=== PATIENT | female | born 1955 | race Asian ===

== ENCOUNTER → 2017-12-10 | Outpatient (CLI) | payer BC ==
--- NOTE | 2017-12-10 16:06 | RADIOLOGY REPORT (SQ) ---
EXAM DESCRIPTION: MRI RT UPPER JOINT WITHOUT COMPLETED DATE/TIME: 12/10/2017 3:32 pm REASON FOR STUDY: M25.511 PAIN IN RIGHT SHOULDER M25.511 PAIN IN RIGHT SHOULDER COMPARISON: None. TECHNIQUE: Right shoulder images acquired and stored on PACS. Multiplanar imaging to include fat sen sitive sequences such as T1, water sensitive sequences such as FST2/STIR, cartilage sensitive sequenc es such as FSPD/gradient-echo sequences. LIMITATIONS: None. FINDINGS: BONE MARROW AND CORTEX: No worrisome bone lesions or marrow replacement. No occult fractur es. JOINT OR BURSAL EFFUSION: No significant joint or bursal fluid. No suggestion of loose bodies. GLENO-HUMERAL ARTICULATION: Intact. ACROMION AND AC JOINT: Type 2. Moderate AC joint arthropathy. ROTATOR CUFF AND INTERVAL: Partial-thickness intrasubstance tear of the supraspinatus. No rotator interval tear. No rotator interval thickening to suggest adhesive capsulitis. LABRUM AND BICEPS LABRAL COMPLEX: Intact. No labral tear. Intra-articular long-head biceps tendon n ormal. Distal biceps in normal location in bicipital groove. REMAINDER OF LABRUM AND IGHL : No gross tear or paralabral cyst formation. Labral evaluation is less than optimal without joint distention. No thickening of IGHL to suggest adhesive capsulitis. PERIARTICULAR AND ADJACENT SOFT TISSUES: No masses or abnormal nodes. OTHER: No other significant finding. IMPRESSION: 1. Tendinopathy. Partial thickness interstitial tear of the supraspinatus. 2. AC joint arthropathy. TECHNICAL DOCUMENTATION: JOB ID: [id number] [employer]- All Rights Reserved
== END ==
LOC: RAD 13:59
PROVIDERS: ATTEND Physician Assistant
DX: M25.511 Pain in right shoulder (principal)

== ENCOUNTER 2018-02-05 05:44 | Day surgery (SDC) | payer BC ==
[2018-02-03 10:53] LABS: HEMATOCRIT 32.4 % (36.0-47.0); HEMOGLOBIN 10.3 g/dL (12.0-15.5); MEAN CORPUSCULAR HEMOGLOBIN 19.6 pg (27.0-33.4); MEAN CORPUSCULAR HGB CONC 31.6 g/dL (32.0-36.0); PLATELET COUNT 251 10^3/uL (150-450); RED BLOOD COUNT 5.24 10^6/uL (3.72-5.28); RED CELL DISTRIBUTION WIDTH 16.8 % (11.5-14.0); WHITE BLOOD COUNT 5.4 10^3/uL (4.0-10.5)
[2018-02-03 11:16] LABS: ALANINE AMINOTRANSFERASE 33 U/L (9-52); ALBUMIN 4.5 g/dL (3.5-5.0); ALKALINE PHOSPHATASE 67 U/L (38-126); AMYLASE 65 U/L (30-110); ANION GAP 10 (5-19); ASPARTATE AMINO TRANSFERASE 31 U/L (14-36); BILIRUBIN,DIRECT 0.5 mg/dL (0.0-0.4); BILIRUBIN,TOTAL 0.7 mg/dL (0.2-1.3); BLOOD UREA NITROGEN 20 mg/dL (7-20); CALCIUM 10.3 mg/dL (8.4-10.2); CARBON DIOXIDE 29 mmol/L (22-30); CHLORIDE 106 mmol/L (98-107); GLUCOSE 99 mg/dL (75-110); POTASSIUM 3.9 mmol/L (3.6-5.0); SODIUM 144.9 mmol/L (137-145); TOTAL PROTEIN 7.5 g/dL (6.3-8.2)
[2018-02-03 11:26] LABS: MEAN CORPUSCULAR VOLUME 62 fl (80-97)
--- NOTE | 2018-02-03 13:16 | EKG REPORT ---
SEVERITY:- NORMAL ECG - SINUS RHYTHM : Confirmed by: Jesu March MD 03-Feb-2018 13:16:03
[2018-02-04 13:05] LABS: PATH REVIEW PATHOLOGIST REVIEWED
[~2018-02-05 05:44] MED LIST: ACETAMINOPHEN 325 MG TABLET PO PRN; CEFAZOLIN 1 GM/D5W RTU 1 GM/50 ML RTUPB IV PRN; LACTATED RINGERS 1000 ML IV PRN; LIDOCAINE 0.5% INJ-PF (5 MG/ML) 50 ML SDV SUBCUT PRN
[2018-02-05] MEDS ORDERED: BUPIVACAINE HCL 0.25 % INJ/PF (2.5 MG/1 ML) 30 ML VIAL ONE (06:58)
[2018-02-05] MEDS ORDERED: FENTANYL CITRATE INJ/PF 250 MCG/5 ML AMPULE ONE (07:12)
[2018-02-05] MEDS ORDERED: HYDROMORPHONE HCL INJ/PF 2 MG/ML AMPULE ONE (07:13)
[2018-02-05] MEDS ORDERED: MIDAZOLAM 2 MG/2 ML INJ ONE (07:13)
[2018-02-05] MEDS ORDERED: EPHEDRINE SULFATE INJ 50 MG/1 ML AMPULE ONE (07:13)
[2018-02-05] MEDS ORDERED: PROPOFOL INJ 200 MG/20 ML VIAL IV ONE (07:14)
[2018-02-05] MEDS ORDERED: ACETAMINOPHEN 100 ML IV ONE (07:14)
[2018-02-05] MEDS ORDERED: DIPHENHYDRAMINE HCL 50 MG/ML VIAL IV PRN (07:58)
[2018-02-05] MEDS ORDERED: MEPERIDINE HCL/PF INJ 25 MG/1 ML DISP.SYRIN IV PRN (07:58)
[2018-02-05] MEDS ORDERED: FENTANYL CITRATE INJ/PF 100 MCG/2 ML AMPUL IV PRN ×3 (07:58)
[2018-02-05] MEDS ORDERED: PROMETHAZINE HCL INJ 25 MG/1 ML VIAL IV PRN ×2 (07:58)
[2018-02-05] MEDS ORDERED: OXYCODONE-ACETAMINOPHEN 5-325 MG TABLET PO PRN ×3 (07:58→08:13)
--- NOTE | 2018-02-05 08:13 | Operative Report ---
Operative Report DATE OF SURGERY: 02/05/18 PREOPERATIVE DIAGNOSIS: Symptomatic cholelithiasis with cholecystitis POSTOPERATIVE DIAGNOSIS: Same OPERATION: Laparoscopic cholecystectomy SURGEON: NORA NOEL BUTT WELDER: CELSO TINSLEY ANESTHESIA: GA TISSUE REMOVED OR ALTERED: Gallbladder with contents COMPLICATIONS: None ESTIMATED BLOOD LOSS: Scant INTRAOPERATIVE FINDINGS: See below PROCEDURE: After obtaining informed consent, the patient was taken to the operating room. General Anesthesia was induced; the arms were extended, and the abdomen was exposed, and prepped and draped in a sterile fashion. Instrumentation was set up for laparoscopic cholecystectomy. Surgical plan and surgical timeout were conducted. A vertical incision was made above the umbilicus, and a verres needle was inserted uneventfully into the peritoneal cavity. Pneumoperitoneum was established. The verres needle was removed and a 5 mm trocar was inserted and a 5 mm flexible laparoscope was inserted. Visualization of the peritoneal cavity confirmed safe uneventful entry. Under direct visualization 3 additional 5 mm ports were established, one in the subxiphoid position and second in the subcostal position. Visualization of the hepatobiliary anatomy revealed no anatomic variations. A grasper was placed on the fundus of the gallbladder and the gallbladder is elevated over the right surface of the liver; a second grasper was used to grasp the infundibulum of the gallbladder. The neck of the gallbladder and junction with the cystic duct was dissected out. The Cystic artery was in its usual location medial and cephalad to the cystic duct. The cystic artery was surrounded with a right angle clamp, clipped twice proximally and divided with laparoscopic scissors. We now opened the triangle of Calot by dividing the peritoneal reflection on both the medial and lateral sides of the cystic duct infundibular junction. At this point we decided preoperatively to an intraoperative cholangiogram based on the patient's graphic findings of a 1 mm crystals in the common bile duct; there is no evidence of common bile duct dilation, and liver function studies were within normal limits. Ever due to the unavailability of operative imaging, the procedure was aborted. The critical view was obtained photos were taken. We now milked the cystic duct of any possible stones, clipped the cystic duct approximately 2 times once distally and divided with scissors. The gallbladder was now removed from the undersurface of the liver using hook cautery dissection. Graspers were repositioned and the gallbladder was removed uneventfully from the abdominal cavity through the super umbilical port site incision. The specimen was examined, then passed off to pathology for permanent analysis. We returned to the peritoneal cavity check for bleeding, and evidence of bile leak, and there was none. We Confirmed satisfactory placement of clips on cystic duct and cystic artery were secured . At this point we felt the operation was complete. The subcutaneous tissue was then anesthetized with quarter percent Marcaine Sponge and needle counts are correct. All ports removed under direct visualization pneumoperitoneum evacuated, and 5 mm port wounds closed with 3-0 Vicryl suture, benzoin and Steri-Strips. The patient was extubated, and taken to the recovery room in stable condition. The physician graduate assistant, Ms. Marcial, provided assistance during this case by: Assisting and port insertion, retracting tissue, instillation of local anesthesia and closure of skin incisions.
[2018-02-05] MEDS ORDERED: ONDANSETRON HCL INJ/PF 4 MG/2 ML SDV IV PRN (08:14)
--- NOTE | 2018-02-05 08:14 | Discharge Summary ---
Discharge Summary (SDC) - Discharge Final Diagnosis: symptomatic cholecystitis with cholelithiasis Date of Surgery: 02/05/18 Discharge Date: 02/05/18 Condition: Stable Treatment or Instructions: [facility] [address] [place] [id number] Discharge Instructions: Laparoscopic Surgery 1. General Information: a. DO NOT DRIVE a car or operate dangerous machinery for 3-4 days or while taking narcotic pain pills. b. DO NOT consume alcohol, tranquilizers, sleeping medications or any non- prescribed medications for 24 hours unless approved by your doctor or as long as taking narcotic prescription medications. c. DO NOT make important decisions or sign any important papers for the first 24 hours after surgery. d. When discharged home the same day of surgery have a responsible person with you for the first night. 2. Activity Restrictions: 2 weeks a. NO heavy lifting, straining abdominal muscles, bending over a lot, yard work, house work, or sports for [address] NOT drive for 3-4 days c. It is fine to go for walks, up and down steps, ride in a car. d. Elevate your head when sleeping/resting. 3. Treatment: a. You may shower 24 hours after surgery, no baths or swimming for 2 weeks. Remove band-aids or dressings before shower but leave paper strips (steri-strips ) on the skin to fall off on their own. If still on at postoperative visit they will be removed then. b. Drainage of fluid or blood is not unusual from an incision. If occurs, you can clean with peroxide and cotton ball daily and cover with dry gauze until the wound seals. c. If a lot of bleeding occurs, you can hold pressure with a gauze or cloth over the site for 10 minutes and it will usually stop. If bleeding continues you will need to call for possible evaluation in office or emergency room. 4. Medications: a. _Toradol__ may be taken for pain as needed, one tablet every 6 hours. b. You should resume all normal medications unless a change is specified by your doctors. 5. Diet: Begin with clear liquids and may progress to your normal diet if not nauseated. No high fat, high protein foods the day of surgery. 6. The following may occur after laparoscopic surgery: a. Shoulder or upper back ache from retained gas that should resolve in 1-2 days b. Soreness and bruising at incision sites will resolve with time. c. Scrotal swelling (labia in women) and bruising is often seen after hernia surgery. d. Sore throat e. Fatigue may last days to weeks. f. Difficulty urinating may occur and may need to come into emergency room for urinary catheter placement. 7. Notify Physician If: a. Worsening or pain not improved with pain medication b. Persistent nausea and vomiting c. Fever above 101 d. Persistent bleeding or swelling at operative site e. Unable to urinate and uncomfortable bladder 6-8 hours after surgery 8..Follow Up Care: a. Schedule a follow up appointment with your doctor for 2 weeks. In the event of any postoperative problems or questions or you may call the office during business hours or the On-Call physician evenings and weekends at [facility]. [facility] I understand the instructions for my postoperative care as described above and a copy has been given to me. Patient/Significant Other Witness Date Prescriptions: Ketorolac Tromethamine [Toradol 10 mg Tablet] 10 mg PO Q6HP PRN #20 tablet PRN Reason: Referrals: ANAYA HUGO MD [Primary Care Provider] - Discharge Diet: Other (Comments) - avoid fatty/greasy foods Discharge Activity: Activity As Tolerated, Walk Frequently Report the Following to Your Physician Immediately: Nausea, Vomiting, Fever over 101 Degrees
[2018-02-05 10:52] VITALS: BP 141/86
[2018-02-05] MEDS ORDERED: SUCCINYLCHOLINE CHLORIDE INJ 200 MG/10 ML VIAL ONE (15:14)
[2018-02-05] MEDS ORDERED: GLYCOPYRROLATE INJ 0.4 MG/2 ML VIAL ONE (15:14)
[2018-02-05] MEDS ORDERED: ROCURONIUM BROMIDE INJ 50 MG/5 ML VIAL IV ONE (15:14)
[2018-02-05] MEDS ORDERED: DEXAMETHASONE SOD PHOSPHATE INJ 4 MG/1 ML VIAL ONE (15:14)
[2018-02-05] MEDS ORDERED: ONDANSETRON HCL INJ/PF 4 MG/2 ML SDV ONE (15:14)
[2018-02-05] MEDS ORDERED: NEOSTIGMINE METHYLSULFATE 10 MG/10 ML VIAL ONE (15:14)
== END 2018-02-05 10:20 | disposition home or self-care (01) ==
LOC: OROUT 05:44
PROVIDERS: ATTEND Surgery
PROC: 0FT44ZZ Resection of Gallbladder, Percutaneous Endoscopic Approach (ICD-10-PCS; principal; 2018-02-05 07:30)
DX: K81.1 Chronic cholecystitis (principal); E70.0 Classical phenylketonuria; I10 Essential (primary) hypertension; M10.9 Gout, unspecified; G47.33 Obstructive sleep apnea (adult) (pediatric); R00.2 Palpitations; Z79.899 Other long term (current) drug therapy
CPT/HCPCS: 93005; 36415 ×2; 82150; 84132; 85027; 80076; 80048; 88304 ×2; 93010; 47562; J2250; J0690; J3490 ×2; J1100; J3010; J0330; J2405; J2704; J0131; 790; J1170

== ENCOUNTER → 2018-02-28 | Outpatient (CLI) | payer BC ==
[2018-02-28 12:01] LABS: HEMATOCRIT 33.8 % (36.0-47.0); HEMOGLOBIN 10.7 g/dL (12.0-15.5); MEAN CORPUSCULAR HEMOGLOBIN 19.6 pg (27.0-33.4); MEAN CORPUSCULAR HGB CONC 31.6 g/dL (32.0-36.0); MEAN CORPUSCULAR VOLUME 62 fl (80-97); PLATELET COUNT 355 10^3/uL (150-450); RED BLOOD COUNT 5.45 10^6/uL (3.72-5.28); RED CELL DISTRIBUTION WIDTH 16.1 % (11.5-14.0)
[2018-02-28 12:22] LABS: ALANINE AMINOTRANSFERASE 23 U/L (9-52); ALBUMIN 4.9 g/dL (3.5-5.0); ALKALINE PHOSPHATASE 63 U/L (38-126); ANION GAP 12 (5-19); ASPARTATE AMINO TRANSFERASE 27 U/L (14-36); BILIRUBIN,DIRECT 0.3 mg/dL (0.0-0.4); BILIRUBIN,TOTAL 0.6 mg/dL (0.2-1.3); BLOOD UREA NITROGEN 20 mg/dL (7-20); CALCIUM 10.8 mg/dL (8.4-10.2); CARBON DIOXIDE 31 mmol/L (22-30); CHLORIDE 100 mmol/L (98-107); GLUCOSE 97 mg/dL (75-110); POTASSIUM 4.4 mmol/L (3.6-5.0); SODIUM 142.8 mmol/L (137-145)
[2018-02-28 12:24] LABS: ABSOLUTE LYMPHOCYTES# (MANUAL) 2.3 10^3/uL (0.5-4.7); ABSOLUTE MONOCYTES # (MANUAL) 0.6 10^3/uL (0.1-1.4); ABSOLUTE NEUTROPHILS# (MANUAL) 5.6 10^3/uL (1.7-8.2); ANISOCYTOSIS 1+; BASOPHILS % (MANUAL) 1 % (0-2); EOSINOPHILS % (MANUAL) 4 % (0-6); HYPOCHROMASIA 1+; LYMPHOCYTES % (MANUAL) 26 % (13-45); MONOCYTES % (MANUAL) 7 % (3-13); OVALOCYTES 1+; PLATELET COMMENT ADEQUATE; POIKILOCYTOSIS 1+; POLYCHROMASIA SLIGHT; SEGMENTED NEUTROPHILS % (MAN) 62 % (42-78); TEAR DROP CELLS SLIGHT; TOTAL CELLS COUNTED 100
[2018-02-28 12:25] LABS: PLATELET LARGE PRESENT
== END ==
LOC: OD 11:12
PROVIDERS: ATTEND Orthopaedic Surgery Sports Medicine
DX: Z11.2 Encounter for screening for other bacterial diseases (principal); I10 Essential (primary) hypertension
CPT/HCPCS: 36415; 80053; 85025; 87070

== ENCOUNTER → 2018-06-09 | Outpatient (CLI) | payer BC ==
--- NOTE | 2018-06-10 08:49 | RADIOLOGY REPORT (SQ) ---
EXAM DESCRIPTION: MRI LT UPPER JOINT WITHOUT COMPLETED DATE/TIME: 06/09/2018 5:56 pm REASON FOR STUDY: M75.102 UNSP ROTATR-CUFF TEAR/RUPTR OF LEFT SHOULDER, NOT TRAUMA M75.102 UNSP ROT ATR-CUFF TEAR/RUPTR OF LEFT SHOULDER, NOT TR COMPARISON: None. TECHNIQUE: Left shoulder images acquired and stored on PACS. Multiplanar imaging to include fat sens itive sequences such as T1, water sensitive sequences such as FST2/STIR, cartilage sensitive sequence s such as FSPD/gradient-echo sequences. LIMITATIONS: None. FINDINGS: BONE MARROW AND CORTEX: No marrow signal abnormalities worrisome for occult fracture or ag gressive marrow replacement process JOINT OR BURSAL EFFUSION: Glenohumeral joint physiologic fluid. Moderate fluid in the subacromial/sherwood bdeltoid bursa. Moderate fluid in the subcoracoid recess with a 3 x 1.4 x 2 cm cyst on axial image 8 and sagittal image 7. GLENO-HUMERAL ARTICULATION: Normal articulation. No subluxation. No cystic change. No osteophytes or cartilage loss. ACROMION AND AC JOINT: Type 2 acromion with widening of the AC joint and bulky AC joint bony spurrin g best shown on axial image 2 and sagittal image 10. Spurring along the undersurface of the acromion narrows the subacromial space ROTATOR CUFF AND INTERVAL: Diffuse tendinopathy with increased signal along the superficial and deep aspect of the supraspinatus and infraspinatus tendons. Subscapularis is intact No rotator interval tear. No rotator interval thickening to suggest adhesive capsulitis. LABRUM AND BICEPS LABRAL COMPLEX: Intra-articular long head biceps tendon is intact. There is a sm all superior labral tear extending anteriorly without paralabral cyst formation. REMAINDER OF LABRUM AND IGHL : No gross tear or paralabral cyst formation. Labral evaluation is less than optimal without joint distention. No thickening of IGHL to suggest adhesive capsulitis. PERIARTICULAR AND ADJACENT SOFT TISSUES: No masses or abnormal nodes. OTHER: No other significant finding. IMPRESSION: Rotator cuff tendinopathy. AC joint bony spurring and AC joint widening. Fluid in suba cromial/subdeltoid bursa. TECHNICAL DOCUMENTATION: JOB ID: [id number] [employer]- All Rights Reserved Reading location - IP/workstation name: [email or web address]
== END ==
LOC: RAD 18:54
PROVIDERS: ATTEND Orthopaedic Surgery Sports Medicine
DX: M75.102 Unspecified rotator cuff tear or rupture of left shoulder, not specified as traumatic (principal)

== ENCOUNTER → 2018-08-20 | Outpatient (CLI) | payer BC ==
--- NOTE | 2018-08-20 09:02 | RADIOLOGY REPORT (SQ) ---
EXAM DESCRIPTION: U/S RETROPERITON (RENAL/AORTA) COMPLETED DATE/TIME: 08/20/2018 8:41 am REASON FOR STUDY: RENAL FAILURE (N17.9) N17.9 ACUTE KIDNEY FAILURE, UNSPECIFIED COMPARISON: None. TECHNIQUE: Dynamic and static grayscale images acquired of the kidneys and bladder and recorded on P ACS. Additional selected color Doppler and spectral images recorded. LIMITATIONS: None. FINDINGS: RIGHT KIDNEY: The right kidney measures 8.5 cm in length. Normal echogenicity. No solid o r suspicious masses. No hydronephrosis. No calcifications. LEFT KIDNEY: The left kidney measures 8.0 cm in length. Normal echogenicity. No solid or suspicious masses. No hydronephrosis. No calcifications. BLADDER: The bladder is incompletely distended. OTHER FINDINGS: No other significant finding. IMPRESSION: 1. No evidence of hydronephrosis. 2. The urinary bladder is incompletely distended. TECHNICAL DOCUMENTATION: JOB ID: [id number] [employer]- All Rights Reserved Reading location - IP/workstation name: [email or web address]
== END ==
LOC: RAD 08:07
PROVIDERS: ATTEND Family Medicine
DX: N17.9 Acute kidney failure, unspecified (principal)
CPT/HCPCS: 76770

== ENCOUNTER → 2018-08-22 | Outpatient (CLI) | payer BC ==
[2018-08-22 16:31] LABS: ABSOLUTE EOSINOPHILS # (AUTO) 0.2 10^3/uL (0.0-0.6); ABSOLUTE MONOCYTES (AUTO) 0.3 10^3/uL (0.1-1.4); ABSOLUTE NEUT (AUTO) 2.9 10^3/uL (1.7-8.2); BASOPHILS % (AUTO) 0.6 % (0-2); EOSINOPHILS % (AUTO) 2.9 % (0-6); HEMATOCRIT 26.9 % (36.0-47.0); HEMOGLOBIN 8.7 g/dL (12.0-15.5); LYMPHOCYTES % (AUTO) 37.6 % (13-45); MEAN CORPUSCULAR HEMOGLOBIN 20.3 pg (27.0-33.4); MEAN CORPUSCULAR HGB CONC 32.4 g/dL (32.0-36.0); MONOCYTES % (AUTO) 5.5 % (3-13); PLATELET COUNT 222 10^3/uL (150-450); RED BLOOD COUNT 4.29 10^6/uL (3.72-5.28); RED CELL DISTRIBUTION WIDTH 18.5 % (11.5-14.0); SEGMENTED NEUTROPHILS % (AUTO) 53.4 % (42-78); TOTAL CELLS COUNTED % (AUTO) 100 %; WHITE BLOOD COUNT 5.4 10^3/uL (4.0-10.5)
[2018-08-22 16:50] LABS: ALANINE AMINOTRANSFERASE 27 U/L (9-52); ALBUMIN 4.1 g/dL (3.5-5.0); ALKALINE PHOSPHATASE 46 U/L (38-126); ANION GAP 6 (5-19); ASPARTATE AMINO TRANSFERASE 31 U/L (14-36); BILIRUBIN,DIRECT 0.4 mg/dL (0.0-0.4); BILIRUBIN,TOTAL 0.7 mg/dL (0.2-1.3); BLOOD UREA NITROGEN 29 mg/dL (7-20); CALCIUM 9.4 mg/dL (8.4-10.2); CARBON DIOXIDE 28 mmol/L (22-30); CHLORIDE 107 mmol/L (98-107); GLUCOSE 83 mg/dL (75-110); POTASSIUM 4.1 mmol/L (3.6-5.0); SODIUM 141.4 mmol/L (137-145); TOTAL PROTEIN 6.4 g/dL (6.3-8.2)
[2018-08-22 16:58] LABS: ANISOCYTOSIS 1+; PLATELET COMMENT ADEQUATE
[2018-08-22 17:04] LABS: HYPOCHROMASIA 1+; OVALOCYTES SLIGHT; POIKILOCYTOSIS SLIGHT
[2018-08-22 17:06] LABS: MEAN CORPUSCULAR VOLUME 63 fl (80-97)
[2018-08-25 17:20] LABS: PATH REVIEW PATHOLOGIST REVIEWED
== END ==
LOC: OD 14:54
PROVIDERS: ATTEND Physician Assistant
DX: Z11.2 Encounter for screening for other bacterial diseases (principal); I10 Essential (primary) hypertension
CPT/HCPCS: 36415; 80053; 85025; 87070

== ENCOUNTER → 2019-02-23 | Outpatient (CLI) | payer BC ==
[2019-02-23 09:19] LABS: ABSOLUTE BASOPHILS # (AUTO) 0.1 10^3/uL (0.0-0.2); ABSOLUTE EOSINOPHILS # (AUTO) 0.3 10^3/uL (0.0-0.6); ABSOLUTE LYMPHOCYTES (AUTO) 2.1 10^3/uL (0.5-4.7); ABSOLUTE MONOCYTES (AUTO) 0.4 10^3/uL (0.1-1.4); BASOPHILS % (AUTO) 1.6 % (0-2); EOSINOPHILS % (AUTO) 5.9 % (0-6); HEMATOCRIT 31.2 % (36.0-47.0); HEMOGLOBIN 10.1 g/dL (12.0-15.5); LYMPHOCYTES % (AUTO) 43.7 % (13-45); MEAN CORPUSCULAR HEMOGLOBIN 20.6 pg (27.0-33.4); MEAN CORPUSCULAR HGB CONC 32.2 g/dL (32.0-36.0); MEAN CORPUSCULAR VOLUME 64 fl (80-97); MONOCYTES % (AUTO) 7.5 % (3-13); PLATELET COUNT 229 10^3/uL (150-450); RED BLOOD COUNT 4.89 10^6/uL (3.72-5.28); RED CELL DISTRIBUTION WIDTH 17.1 % (11.5-14.0); SEGMENTED NEUTROPHILS % (AUTO) 41.3 % (42-78); TOTAL CELLS COUNTED % (AUTO) 100 %; WHITE BLOOD COUNT 4.9 10^3/uL (4.0-10.5)
[2019-02-23 09:46] LABS: ALBUMIN 4.1 g/dL (3.5-5.0); ANION GAP 5 (5-19); BLOOD UREA NITROGEN 19 mg/dL (7-20); CALCIUM 10.4 mg/dL (8.4-10.2); CARBON DIOXIDE 28 mmol/L (22-30); CHLORIDE 110 mmol/L (98-107); GLUCOSE 93 mg/dL (75-110); PHOSPHORUS 4.3 mg/dL (2.5-4.5); SODIUM 143.2 mmol/L (137-145)
[2019-02-23 09:47] LABS: ANISOCYTOSIS 1+; HYPOCHROMASIA 2+; OVALOCYTES 1+; PLATELET LARGE PRESENT; POIKILOCYTOSIS 1+; POLYCHROMASIA 1+; TARGET CELLS SLIGHT; TEAR DROP CELLS 1+
[2019-02-23 09:48] LABS: PLATELET COMMENT ADEQUATE
[2019-02-23 10:17] LABS: URINE CREATININE 163.3 mg/dL (15-278)
[2019-02-23 10:24] LABS: UR PRO/CREAT RATIO RESULT 1.6 mg/mg (0.0-0.2); URINE PROTEIN 266.4 mg/dL (<12)
[2019-02-24 17:36] LABS: A/G RATIO 1.5 (0.7-1.7); ALBUMIN 2 3.9 g/dL (2.9-4.4); ALPHA-2-GLOBULIN 2 0.4 g/dL (0.4-1.0); GAMMA GLOBULIN 0.9 g/dL (0.4-1.8); GLOBULIN TOTAL 2.6 g/dL (2.2-3.9); MONOCLONAL SPIKE Not Observed g/dL (Not Observ); PROTEIN TOTAL SERUM 6.5 g/dL (6.0-8.5)
== END ==
LOC: OD 08:39
PROVIDERS: ATTEND Internal Medicine Nephrology
DX: I12.9 Hypertensive chronic kidney disease with stage 1 through stage 4 chronic kidney disease, or unspecified chronic kidney disease (principal); N18.3 Chronic kidney disease, stage 3 (moderate); D63.1 Anemia in chronic kidney disease; R80.9 Proteinuria, unspecified
CPT/HCPCS: 36415; 80069; 82306; 82570; 83970; 84156; 84165; 85025

== ENCOUNTER → 2019-06-03 | Outpatient (CLI) | payer BC ==
[2019-06-03 13:42] LABS: ABSOLUTE EOSINOPHILS # (AUTO) 0.2 10^3/uL (0.0-0.6); ABSOLUTE LYMPHOCYTES (AUTO) 1.7 10^3/uL (0.5-4.7); ABSOLUTE MONOCYTES (AUTO) 0.3 10^3/uL (0.1-1.4); ABSOLUTE NEUT (AUTO) 1.8 10^3/uL (1.7-8.2); EOSINOPHILS % (AUTO) 4.4 % (0-6); HEMATOCRIT 27.9 % (36.0-47.0); HEMOGLOBIN 8.9 g/dL (12.0-15.5); LYMPHOCYTES % (AUTO) 42.7 % (13-45); MEAN CORPUSCULAR HEMOGLOBIN 20.1 pg (27.0-33.4); MEAN CORPUSCULAR HGB CONC 31.9 g/dL (32.0-36.0); MEAN CORPUSCULAR VOLUME 63 fl (80-97); MONOCYTES % (AUTO) 6.9 % (3-13); PLATELET COUNT 254 10^3/uL (150-450); RED BLOOD COUNT 4.41 10^6/uL (3.72-5.28); RED CELL DISTRIBUTION WIDTH 16.3 % (11.5-14.0); TOTAL CELLS COUNTED % (AUTO) 100 %
[2019-06-03 13:58] LABS: ANION GAP 8 (5-19); BLOOD UREA NITROGEN 36 mg/dL (7-20); CALCIUM 9.9 mg/dL (8.4-10.2); CARBON DIOXIDE 28 mmol/L (22-30); CHLORIDE 108 mmol/L (98-107); GLUCOSE 111 mg/dL (75-110); IRON(TIBC) 158.5 ug/dL (37-170); SODIUM 143.6 mmol/L (137-145)
[2019-06-03 14:14] LABS: ANISOCYTOSIS 1+; PLATELET COMMENT ADEQUATE
[2019-06-03 14:16] LABS: OVALOCYTES 1+; POIKILOCYTOSIS 2+; TARGET CELLS 2+
[2019-06-03 14:17] LABS: PLATELET LARGE PRESENT; POLYCHROMASIA SLIGHT
[2019-06-03 14:21] LABS: UR PRO/CREAT RATIO RESULT 0.2 mg/mg (0.0-0.2); URINE CREATININE 104.3 mg/dL (15-278); URINE PROTEIN 20.4 mg/dL (<12)
== END ==
LOC: OD 13:08
PROVIDERS: ATTEND Internal Medicine Nephrology
DX: I12.9 Hypertensive chronic kidney disease with stage 1 through stage 4 chronic kidney disease, or unspecified chronic kidney disease (principal); N18.3 Chronic kidney disease, stage 3 (moderate); R80.9 Proteinuria, unspecified; D63.1 Anemia in chronic kidney disease
CPT/HCPCS: 36415; 80048; 82570; 82728; 83540; 83550; 84156; 85025

== ENCOUNTER → 2019-10-19 | Outpatient (CLI) | payer MEDICAID, MEDICARE ==
[2019-10-19 15:26] LABS: ANION GAP 9 (5-19); BLOOD UREA NITROGEN 20 mg/dL (7-20); CARBON DIOXIDE 27 mmol/L (22-30); CHLORIDE 109 mmol/L (98-107); GLUCOSE 86 mg/dL (75-110)
== END ==
LOC: OD 14:08
PROVIDERS: ATTEND Internal Medicine Nephrology
DX: N17.9 Acute kidney failure, unspecified (principal); I12.9 Hypertensive chronic kidney disease with stage 1 through stage 4 chronic kidney disease, or unspecified chronic kidney disease; N18.3 Chronic kidney disease, stage 3 (moderate); N25.81 Secondary hyperparathyroidism of renal origin
CPT/HCPCS: 36415; 80048

== ENCOUNTER → 2019-12-21 | Outpatient (CLI) | payer MEDICARE, MEDICAID ==
[2019-12-21 12:22] LABS: APPEARANCE,URINE CLEAR; BILIRUBIN,URINE NEGATIVE (NEGATIVE); COLOR,URINE YELLOW; GLUCOSE, URINE NEGATIVE (NEGATIVE); KETONES,URINE NEGATIVE (NEGATIVE); LEUKOCYTE ESTERASE,URINE NEGATIVE (NEGATIVE); NITRITE,URINE NEGATIVE (NEGATIVE); PROTEIN,URINE 30 mg/dL (NEGATIVE); URINE SPECIFIC GRAVITY 1.017; UROBILINOGEN,URINE NEGATIVE mg/dL (<2.0)
[2019-12-21 12:49] LABS: ALBUMIN 4.2 g/dL (3.5-5.0); ANION GAP 10 (5-19); BLOOD UREA NITROGEN 21 mg/dL (7-20); CALCIUM 10.1 mg/dL (8.4-10.2); CARBON DIOXIDE 29 mmol/L (22-30); CHLORIDE 103 mmol/L (98-107); GLUCOSE 88 mg/dL (75-110); PHOSPHORUS 3.8 mg/dL (2.5-4.5)
[2019-12-21 13:01] LABS: ABSOLUTE EOSINOPHILS # (AUTO) 0.2 10^3/uL (0.0-0.6); ABSOLUTE LYMPHOCYTES (AUTO) 1.9 10^3/uL (0.5-4.7); ABSOLUTE MONOCYTES (AUTO) 0.3 10^3/uL (0.1-1.4); BASOPHILS % (AUTO) 0.8 % (0-2); EOSINOPHILS % (AUTO) 4.6 % (0-6); HEMATOCRIT 32.5 % (36.0-47.0); HEMOGLOBIN 10.4 g/dL (12.0-15.5); LYMPHOCYTES % (AUTO) 43.4 % (13-45); MEAN CORPUSCULAR HEMOGLOBIN 20.1 pg (27.0-33.4); MEAN CORPUSCULAR VOLUME 63 fl (80-97); MONOCYTES % (AUTO) 5.9 % (3-13); PLATELET COUNT 214 10^3/uL (150-450); RED BLOOD COUNT 5.17 10^6/uL (3.72-5.28); RED CELL DISTRIBUTION WIDTH 15.8 % (11.5-14.0); SEGMENTED NEUTROPHILS % (AUTO) 45.3 % (42-78); TOTAL CELLS COUNTED % (AUTO) 100 %; WHITE BLOOD COUNT 4.5 10^3/uL (4.0-10.5)
[2019-12-21 13:51] LABS: HYPOCHROMASIA 2+; POLYCHROMASIA SLIGHT
[2019-12-21 13:52] LABS: ANISOCYTOSIS SLIGHT
[2019-12-21 13:53] LABS: OVALOCYTES 1+; PLATELET COMMENT ADEQUATE; POIKILOCYTOSIS 1+; TARGET CELLS SLIGHT; TEAR DROP CELLS SLIGHT
[2019-12-22 14:36] LABS: CREATININE URINE 170.4 mg/dL (Not Estab.); MICROALBUMIN URINE 131.6 ug/mL (Not Estab.)
== END ==
LOC: OD 11:52
PROVIDERS: ATTEND Internal Medicine Nephrology
DX: I12.9 Hypertensive chronic kidney disease with stage 1 through stage 4 chronic kidney disease, or unspecified chronic kidney disease (principal); N18.3 Chronic kidney disease, stage 3 (moderate); R80.9 Proteinuria, unspecified
CPT/HCPCS: 36415; 80069; 81001; 82043; 82306; 82570; 83970; 85025

== ENCOUNTER → 2020-04-20 | Outpatient (CLI) | payer MEDICARE, MEDICAID ==
[2020-04-20 10:17] LABS: ABSOLUTE BASOPHILS # (AUTO) 0.1 10^3/uL (0.0-0.2); ABSOLUTE EOSINOPHILS # (AUTO) 0.2 10^3/uL (0.0-0.6); ABSOLUTE LYMPHOCYTES (AUTO) 2.3 10^3/uL (0.5-4.7); ABSOLUTE MONOCYTES (AUTO) 0.3 10^3/uL (0.1-1.4); ABSOLUTE NEUT (AUTO) 1.5 10^3/uL (1.7-8.2); BASOPHILS % (AUTO) 1.2 % (0-2); EOSINOPHILS % (AUTO) 5.1 % (0-6); HEMATOCRIT 27.8 % (36.0-47.0); LYMPHOCYTES % (AUTO) 52.2 % (13-45); MEAN CORPUSCULAR HEMOGLOBIN 20.7 pg (27.0-33.4); MEAN CORPUSCULAR HGB CONC 32.4 g/dL (32.0-36.0); MEAN CORPUSCULAR VOLUME 64 fl (80-97); MONOCYTES % (AUTO) 7.7 % (3-13); PLATELET COUNT 248 10^3/uL (150-450); RED BLOOD COUNT 4.36 10^6/uL (3.72-5.28); RED CELL DISTRIBUTION WIDTH 17.1 % (11.5-14.0); SEGMENTED NEUTROPHILS % (AUTO) 33.8 % (42-78); TOTAL CELLS COUNTED % (AUTO) 100 %; WHITE BLOOD COUNT 4.5 10^3/uL (4.0-10.5)
[2020-04-20 10:35] LABS: ANION GAP 9 (5-19); ANISOCYTOSIS 1+; BLOOD UREA NITROGEN 28 mg/dL (7-20); CALCIUM 9.8 mg/dL (8.4-10.2); CARBON DIOXIDE 28 mmol/L (22-30); CHLORIDE 104 mmol/L (98-107); GLUCOSE 94 mg/dL (75-110); IRON(TIBC) 93.2 ug/dL (37-170); PLATELET COMMENT ADEQUATE; POTASSIUM 4.1 mmol/L (3.6-5.0)
[2020-04-20 10:37] LABS: POIKILOCYTOSIS 1+; TARGET CELLS 1+
[2020-04-20 10:38] LABS: HYPOCHROMASIA 1+; OVALOCYTES 1+; POLYCHROMASIA SLIGHT
[2020-04-21 12:36] LABS: CREATININE URINE 103.9 mg/dL (Not Estab.)
== END ==
LOC: OD 09:23
PROVIDERS: ATTEND Internal Medicine Nephrology
DX: I12.9 Hypertensive chronic kidney disease with stage 1 through stage 4 chronic kidney disease, or unspecified chronic kidney disease (principal); N18.3 Chronic kidney disease, stage 3 (moderate); D64.9 Anemia, unspecified; R80.9 Proteinuria, unspecified
CPT/HCPCS: 36415; 80048; 82043; 82570; 82728; 83540; 83550; 85025